=== PATIENT | male | born 1970 | race Two or more races ===

== ENCOUNTER 2024-09-02 20:48 | Inpatient (IN) | payer SELFPAY ==
[2024-09-02] VITALS (22 sets, daily range): BP systolic 126–154; BP diastolic 66–82; PULSE 74–106; RESP 14; TEMP 37.3; O2SAT 92–100; BMI 33.9
--- NOTE | 2024-09-02 21:02 | ECG_ITS ---
[facility] Test Date: 2024-09-02 Pat Name: JAZLYN STANTON Department: Room: - Gender: Male [employer]: : 1970 Requested By: [id number] Order Number: [id number] Reading MD: ROOSEVELT SUÁREZ M.D. Measurements Intervals [place] Rate: 81 P: 61 IL: 140 QRS: 74 QRSD: 84 T: 60 QT: 374 QTc: 412 Interpretive Statements 1100 Sinus rhythm 9110 normal ECG No previous ECG available for comparison Electronically Signed On 09-03-2024 18:34:39 EDT by ROOSEVELT SUÁREZ M.D.
--- NOTE | 2024-09-02 21:02 | XR_ITS ---
[facility] [place] [id number] Patient Name: JAZLYN STANTON MRN: [id number] date: 1970 Sex: M Assigned Patient Location: ED.MAIN Current Patient Location: ED.MAIN Accession/Order Number: [id number] Exam Date: 09/02/2024 21:19 Report Date: 09/02/2024 21:19 At the request of: NAILA REDMAN MD Procedure: XR chest 1V Plain film chest Single view HISTORY: Cough and shortness of breath COMPARISON: None FINDINGS: SUPPORT DEVICES: None POSTSURGICAL CHANGES: None HEART: Within normal limits PULMONARY SONAM: Within normal limits MEDIASTINUM: Unremarkable LUNGS AND PLEURA: No acute lung process, pleural effusion or pneumothorax identified. BONY STRUCTURES: Intact ADDITIONAL FINDINGS None XR/XR chest 1V IMPRESSION: No acute process. Impression dictated by: Jordan De Dios M.D. 09/02/2024 9:19 PM Dictation Location[facility] Electronically authenticated by: [id number] Y Date: 09/02/2024 21:19
--- NOTE | 2024-09-02 21:09 | ED.SOB1 ---
HPI - SOB/Dyspnea General Chief Complaint: Shortness of Breath/Dyspnea Stated Complaint: SHORTNESS OF BREATH, WATER RETENTION Time Seen by Provider: 09/02/24 20:56 Source: patient and family Mode of arrival: walk-in Limitations: no limitations History of Present Illness HPI Narrative: The patient is a 53-year-old male is coming to the ER with 1 week history of increasing shortness of breath, associated with a cough that is productive of white sputum, the patient have a history of chronic bilateral leg edema that has been there at least for the last 2 months, it has also been increasing in the last week as well There was no history of fever chills but there is obvious difficulty breathing upon arrival to the ER, patient was tachypneic and wheezing Patient have a history of asthma and he uses inhalers at home The patient mentioned that he has been recently diagnosed with pneumonia in April of this year at that time he was started on inhaler. The patient denies any history of asthma before but he mentioned that he is a smoker less than 1 pack of cigarettes per day Related Data Home Medications ?Medication ?Instructions ?Recorded ?Confirmed bupropion HCl 150 mg 24 hr tablet, 150 mg PO DAILY 09/02/24 09/02/24 extended release furosemide 40 mg tablet 40 mg PO BID 09/02/24 09/02/24 pramipexole 0.75 mg tablet 0.75 mg PO TID 09/02/24 09/02/24 spironolactone 100 mg tablet 100 mg PO DAILY 09/02/24 09/02/24 (Aldactone) Allergies Allergy/AdvReac Type Severity Reaction Status Date / Time No Known Drug Allergies Allergy Verified 09/02/24 21:00 Review of Systems ROS Status of ROS 10 or more systems reviewed and unremarkable except as noted in history and below PFSH PFSH Social History Little interest or pleasure in doing things: not at all Feeling down, depressed, or hopeless: not at all Exam Narrative Exam Narrative: Nurses notes and vital signs reviewed and patient is not hypoxic. General: Well-appearing and in no apparent distress. Skin: Warm, dry, no pallor noted. No rash. Head: Normocephalic, atraumatic. Neck: Supple, non-tender. Eye: Pupils are equal, round and EOMI. No scleral icterus. Ears, Nose, Mouth, and Throat: TM are clear, no nasal mucosal hypertrophy. Oral mucosa is moist, no posterior oropharynx erythema, uvula is mid-line Cardiovascular: Regular Rate and Rhythm without murmur, gallop or rub. Respiratory: Patient is tachypneic and coughing Lungs bilateral expiratory lung wheezes in both lung erickson Back: No midline thoracic or lumbar vertebral tenderness. No CVA tenderness Musculoskeletal: normal ROM, no calf or popliteal tenderness, no lower extremity edema/swelling GI: Abdomen is soft, non-distended. Normal bowel sounds. No masses appreciated. No tenderness to palpation. No rebound, guarding, or rigidity noted. Neurological: A&O x4. No cranial nerve dysfunction observed. No truncal ataxia. Moves all extremities. Sensation intact. Psychiatric: Cooperative and interactive. Normal mood and affect. Constitutional Vital Signs, click to edit/add: Last Vital Signs Temp 99.2 F 09/02/24 20:56 Pulse 80 09/02/24 23:50 Resp 27 H 09/02/24 23:50 BP 132/68 09/02/24 23:31 Pulse Ox 92 L 09/02/24 23:50 O2 Del Method BIPAP 09/02/24 21:40 FiO2 28 09/02/24 21:40 Course Vital Signs Vital signs: Vital Signs Temperature 99.2 F 09/02/24 20:56 Pulse Rate 89 09/02/24 20:56 Respiratory Rate 22 H 09/02/24 20:56 Blood Pressure 126/66 09/02/24 20:56 Pulse Oximetry 95 09/02/24 20:56 Oxygen Delivery Method Room Air 09/02/24 20:56 Temperature 99.2 F 09/02/24 20:56 Pulse Rate 80 09/02/24 23:50 Respiratory Rate 27 H 09/02/24 23:50 Blood Pressure 132/68 09/02/24 23:31 Pulse Oximetry 92 L 09/02/24 23:50 Oxygen Delivery Method BIPAP 09/02/24 21:40 Fraction of Inspired Oxygen 28 09/02/24 21:40 MDM - SOB/Dyspnea MDM Narrative Medical decision making narrative: The patient EKG showing sinus rhythm with a heart rate of [address] elevation noted for any acute coronary syndrome The patient initially when he came he started having an episode of coughing after which he was using his accessory muscle that why a rosales to give him a breathing treatment with the BiPAP but when I presumed the ABGs it did show some hypoxemia but there is no CO2 retention and the patient was feeling much better after the breathing treatment that we took off the BiPAP The patient on nasal cannula was saturating initially 2 L at 96 to 98% The patient right now is on room air and saturating 92% The patient chest x-ray showed no acute pathology but the D-dimer was elevated and the CT PE did show that the patient have a small pulmonary embolus in the right lower lobe that is not occlusive The patient CBC and chemistry showed no acute significant pathology the BNP was not elevated and the troponins well The patient was started on Eliquis at the treatment for PE but he will be admitted for further evaluation and the need for DVT as well ultrasound Patient still wheezing and needs further treatment and observation Patient case was discussed with Keysha Menard the patient will be admitted under Dr. Regalado Lab Data Labs: Lab Results 09/02/24 09/02/24 09/02/24 Range/Units 21:04 21:40 21:50 WBC 7.2 (4.0-11.0) 10^3/uL RBC 3.92 L (4.70-6.10) 10^6/uL Hgb 9.4 L (14.0-18.0) g/dL Hct 31.1 L (42.0-54.0) % MCV 79.3 L (80.0-94.0) fL MCH 24.0 L (25.9-34.0) pg MCHC 30.2 (29.9-35.2) g/dL RDW 18.2 H (11.0-15.0) % Plt Count 225 (150-450) 10^3/uL MPV 9.6 (9.5-13.5) fL Neut % (Auto) 56.5 (43.0-75.0) % Lymph % (Auto) 15.5 L (20.5-60.0) % Starke % (Auto) 7.8 (1.7-12.0) % Eos % (Auto) 18.9 H (0.9-7.0) % Baso % (Auto) 0.7 (0.2-2.0) % Neut # (Auto) 4.1 (1.4-6.5) 10^3/uL Lymph # (Auto) 1.1 L (1.2-3.8) 10^3/uL Starke # (Auto) 0.6 (0.3-0.8) 10^3/uL Eos # (Auto) 1.4 H (0.0-0.7) 10^3/uL Baso # (Auto) 0.1 (0.0-0.1) 10^3/uL Abs Immat Gran (auto) 0.04 H (0.00-0.03) 10^3/uL Imm/Tot Granulo (auto) 0.6 H (0.0-0.5) % D-Dimer 0.98 H* (<=0.59) mg/L FEU Puncture Site Rr ABG pH 7.474 H (7.350-7.450) ABG pCO2 34.5 L (35.0-45.0) mmHg ABG pO2 71.3 L (80.0-100.0) mmHg ABG HCO3 25.3 (22.0-26.0) mmol/L ABG O2 Saturation 96.2 % ABG Base Excess 1.7 (-2.0-2.0) mmol/L Luigi Test Positive (POSITIVE) FiO2 28 % BiPAP 16/8 Sodium 126 L (136-145) mmol/L Potassium 3.5 (3.5-5.1) mmol/L Chloride 89 L (98-107) mmol/L Carbon Dioxide 27.0 (21.0-32.0) mmol/L Anion Gap 13.5 BUN 10.0 (7.0-18.0) mg/dL Creatinine 1.28 (0.70-1.30) mg/dL Est GFR ( Amer) >60 (>=60 mL/min/1.73m^2) Est GFR (Non-Af Amer) 59 L (>=60 mL/min/1.73m^2) BUN/Creatinine Ratio 7.8 Glucose 106 (74-106) mg/dL Calcium 9.0 (8.5-10.1) mg/dL Total Bilirubin 0.8 (0.2-1.0) mg/dL AST 36 (15-37) U/L ALT 25 (16-63) U/L Alkaline Phosphatase 99 (46-116) U/L Troponin I High Sens 6.9 (4.0-76.1) pg/mL NT-Pro-B Natriuret Pep 151.0 (<=900.0) pg/mL Total Protein 8.1 (6.4-8.2) g/dL Albumin 3.6 (3.4-5.0) g/dL Globulin 4.5 g/dL Albumin/Globulin Ratio 0.8 Influenza Type A Ag Negative Influenza Type B Ag Negative SARS-CoV-2 Ag (CV2AG) Negative (NEGATIVE) Discharge Plan Discharge Chief Complaint: Shortness of Breath/Dyspnea Clinical Impression: Asthma exacerbation in COPD, Pulmonary embolism Patient Disposition: Admitted as Observation Time of Disposition Decision: 01:31 Condition: Good
[2024-09-02 21:12] LABS: Basophils Absolute Auto 0.1 10^3/uL (0.0-0.1); Basophils Percent Auto 0.7 % (0.2-2.0); Eosinophils Absolute Auto 1.4 10^3/uL (0.0-0.7); Eosinophils Percent Auto 18.9 % (0.9-7.0); Hematocrit 31.1 % (42.0-54.0); Hemoglobin 9.4 g/dL (14.0-18.0); Immature Granulocytes Abs Auto 0.04 10^3/uL (0.00-0.03); Immature Granulocytes Pct Auto 0.6 % (0.0-0.5); Lymphocytes Absolute Auto 1.1 10^3/uL (1.2-3.8); Lymphocytes Percent Auto 15.5 % (20.5-60.0); Mean Corpuscular HGB Conc 30.2 g/dL (29.9-35.2); Mean Corpuscular Volume 79.3 fL (80.0-94.0); Mean Platelet Volume 9.6 fL (9.5-13.5); Monocytes Absolute Auto 0.6 10^3/uL (0.3-0.8); Monocytes Percent Auto 7.8 % (1.7-12.0); Neutrophils Absolute Auto 4.1 10^3/uL (1.4-6.5); Neutrophils Percent Auto 56.5 % (43.0-75.0); Platelet Count 225 10^3/uL (150-450); Red Blood Count 3.92 10^6/uL (4.70-6.10); Red Cell Distribution Width 18.2 % (11.0-15.0); White Blood Count 7.2 10^3/uL (4.0-11.0)
--- NOTE | 2024-09-02 21:15 | PC.NURSE ---
this patient complains of shortness of breath, weight gain and cough for the past couple weeks
--- NOTE | 2024-09-02 21:17 | PC.NURSE ---
pt states he's been sob x1 week, persistently getting worse. BLEs have been also swollen x2 months approx, and also getting worse. has not seen PCP since apr when he had pneumonia/flu at the same time. pt is visibly sob upon arrival with audible wheezes & a harsh cough. pt is on 2 water pills. states he's gained 50lbs in 3 months
[2024-09-02] MEDS: METHYLPREDNISOLONE SOD SUCC PF 125 MG/2 ML VIAL IVP (21:19)
[2024-09-02 21:31] LABS: Alanine Aminotransferase 25 U/L (16-63); Albumin Globulin Ratio 0.8; Albumin Level 3.6 g/dL (3.4-5.0); Alkaline Phosphatase 99 U/L (46-116); Anion Gap 13.5; Aspartate Amino Transferase 36 U/L (15-37); BUN Creatinine Ratio 7.8; Bilirubin Total 0.8 mg/dL (0.2-1.0); Chloride 89 mmol/L (98-107); Estimated GFR (African America >60 (>=60 mL/min/1.73m^2); Estimated GFR (Non-African Ame 59 (>=60 mL/min/1.73m^2); Globulin 4.5 g/dL; Glucose 106 mg/dL (74-106); Potassium 3.5 mmol/L (3.5-5.1); Sodium 126 mmol/L (136-145); Total Protein 8.1 g/dL (6.4-8.2)
[2024-09-02 21:37] LABS: Troponin I High Sensitivity 6.9 pg/mL (4.0-76.1)
[2024-09-02] MEDS: IPRATROPIUM/ALBUTEROL SULFATE 3 ML AMPUL.NEB IH (21:43)
[2024-09-02 21:56] LABS: ABG PCO2 34.5 mmHg (35.0-45.0); HCO3 ABG 25.3 mmol/L (22.0-26.0); PO2 ABG 71.3 mmHg (80.0-100.0); pH ABG 7.474 (7.350-7.450)
[2024-09-02 21:57] LABS: Allen Test POSITIVE (POSITIVE); BIPAP Pressure 16/8; Base Excess ABG 1.7 mmol/L (-2.0-2.0); Fractionated Inspired Oxygen 28 %; O2 Mode BIPAP; Oxygen Saturation ABG 96.2 %; Puncture Site RR
[2024-09-02 22:03] LABS: D Dimer 0.98 mg/L FEU (<=0.59)
[2024-09-02 22:12] LABS: Influenza Virus A Antigen Negative; Influenza Virus B Antigen Negative; Internal Control Within Normal Limits; SARS-CoV-2 Ag NEGATIVE (NEGATIVE)
--- NOTE | 2024-09-02 22:44 | PC.NURSE ---
this patient is back from ambulating to and back from the restroom across from room number 9, this patient voices no complaints of shortness of breath or coughing episode. this patient has been updated about the new order for chest CT for him. this patient voices no concerns or needs and shows no signs of distress
[2024-09-03] VITALS (95 sets, daily range): BP systolic 119–192; BP diastolic 54–93; PULSE 76–100; TEMP 36.6–36.9; O2SAT 88–98; BMI 42.0
[2024-09-03] MEDS: APIXABAN 5 MG TABLET 10 MG PO ×2 (01:52→08:03)
[2024-09-03] MEDS: IPRATROPIUM/ALBUTEROL SULFATE 3 ML AMPUL.NEB IH ×4 (04:36→15:04)
[2024-09-03 05:59] LABS: Hemoglobin 8.8 g/dL (14.0-18.0); Mean Corpuscular HGB Conc 30.3 g/dL (29.9-35.2); Mean Corpuscular Hemoglobin 24.3 pg (25.9-34.0); Mean Corpuscular Volume 80.1 fL (80.0-94.0); Mean Platelet Volume 9.8 fL (9.5-13.5); Platelet Count 184 10^3/uL (150-450); Red Blood Count 3.62 10^6/uL (4.70-6.10); Red Cell Distribution Width 18.1 % (11.0-15.0); White Blood Count 4.7 10^3/uL (4.0-11.0)
[2024-09-03 06:18] LABS: Anion Gap 13.5; BUN Creatinine Ratio 10.1; Calcium 8.9 mg/dL (8.5-10.1); Carbon Dioxide 27.6 mmol/L (21.0-32.0); Chloride 93 mmol/L (98-107); Estimated GFR (African America >60 (>=60 mL/min/1.73m^2); Estimated GFR (Non-African Ame 54 (>=60 mL/min/1.73m^2); Glucose 183 mg/dL (74-106); Potassium 4.1 mmol/L (3.5-5.1); Sodium 130 mmol/L (136-145)
[2024-09-03] MEDS: PRAMIPEXOLE 0.125 MG TABLET 0.75 MG PO ×2 (06:21→13:57)
[2024-09-03] MEDS: METHYLPREDNISOLONE SOD SUCC PF 40 MG/ML VIAL 60 MG IVP ×3 (06:22→17:53)
[2024-09-03 06:27] LABS: Troponin I High Sensitivity 4.6 pg/mL (4.0-76.1)
--- NOTE | 2024-09-03 07:00 | CA_ITS ---
Patient Name: JAZLYN STANTON MR#: [id number] : 1970 Exam Date: 09/03/2024 Ordering Doctor: ALEX ALBERT ECHOCARDIOGRAM REPORT PROCEDURE: CA ECHO DOPPLER COMPLETE INDICATIONS: Pulmonary embolism, alcohol abuse, smoker, asthma exacerbation in COPD COMPARISON: None. DESCRIPTION: COMPLETE ECHOCARDIOGRAM Real-time transthoracic echocardiography with 2D, M-mode, spectral and color flow Doppler performed. QUALITY: Technically difficult due to patients condition. LEFT VENTRICLE: Normal chamber size. Thickened septal wall. Systolic function is hyperdynamic. Increased ejection velocities are noted related to hyperdynamic function. Peak gradient with Valsalva maneuver 34 mmHg. LV EF: Hyperdynamic left ventricular ejection fraction, (75%). DIASTOLIC: ATRIAL SEPTUM: LEFT ATRIUM: Normal chamber size. RIGHT ATRIUM: Normal chamber size. RIGHT VENTRICLE: Normal chamber size. Normal right ventricular systolic function. TRICUSPID VALVE: Normal mobility and thickness. No stenosis with no regurgitation. Unable to assess right-sided pressures due to lack of measurable tricuspid regurgitation. MITRAL VALVE: Normal mobility and thickness. No evidence of mitral valve stenosis. There is no mitral annular calcification. No mitral regurgitation. AORTIC VALVE: No visible sclerosis. Normal leaflet mobility. No evidence of aortic valve stenosis. No aortic regurgitation. AORTIC ROOT: Normal diameter and appearance. PULMONIC VALVE: Not well visualized. No stenosis. No regurgitation. PERICARDIUM: No evidence of pericardial effusion. IVC: IVC is dilated (2.4 cm), does not fully collapse. PLEURA: CONCLUSION: 1. The left ventricular is normal in size and exhibits hyperdynamic systolic function. Estimated LVEF is 75%. Elevated left ventricular ejection velocities are noted with increase during the Valsalva maneuver with a peak gradient of 34 mmHg. 2. Normal right ventricular size and systolic function. 3. No significant valvular dysfunction. 4. Technically difficult study with poor sound transmission. 5. Depending on the clinical picture, a cardiac MRI can be considered for better characterization of the increased ventricular outflow velocities. Adult Echocardiography Procedure Report Left Ventricle LVEDD (3.7 - 5.6 cm): 4.12 cm LVESD (2.2 - 4.0 cm): 2.38 cm LVIVS thickness (0.6 - 1.2 cm): 1.01 cm LVPW thickness (0.5 - 1.0 cm): 1.43 cm e': 0.18 m/s E - e': 4.04 LVOT Max Gradient: 9.99 mm[Hg] LVOT Area (cm2): 1.58 m/s Peak Velocity (LVOT): 1.58 m/s LVOT Diameter 2.49 cm Left Atrium LA Volume Index (2D A2C): 24.07 ml/m2 Left Atrium Systolic Dimension: 3.50 cm Mitral Valve MV E to A Ratio: 0.93 Mitral Valve A-Wave Peak Velocity: 0.79 m/s Mitral Valve E-Wave Peak Velocity: 0.73 m/s Right Ventricle Aorta AO Root Diam: 3.61 cm Aortic Valve AoV Area (Peak Ramírez): 3.32 cm2, 3.32 cm2 Peak Velocity(Antegrade Flow): 2.32 m/s Peak Gradient(Antegrade Flow): 21.58 mm[Hg] Tricuspid Valve Pulmonic Valve Peak Velocity: 1.58 m/s Peak Gradient: 10.03 mm[Hg] Right Atrium Dictated by: Holger Norris M.D. on 09/03/2024 at 13:39 Approved by: Holger Norris M.D. on 09/03/2024 at 13:44
--- NOTE | 2024-09-03 07:04 | CT_ITS ---
[address] [address] Patient Name: JAZLYN STANTON MRN: [id number] date: 1970 Sex: M Assigned Patient Location: MS Current Patient Location: MS Accession/Order Number: [id number] Exam Date: 09/03/2024 08:27 Report Date: 09/03/2024 08:34 At the request of: MYLENE MERCADO DO Procedure: CT abdomen pelvis wo con CT Abdomen and Pelvis withoutcontrast TECHNIQUE: Axial imaging with 2-D reconstruction. . The CT exam was performed using one or more the following dose reduction techniques: Automated exposure control, adjustment of the MA and/or Kv according to patient size, or use of the iterative reconstruction technique. COMPARISON: None History: History of cirrhosis. Weight gain. Fluid retention. Recent contrasted study 09/02/2024 LIMITATIONS: None LOWER THORAX mild atelectasis LIVER: Liver cirrhosis. Hepatic steatosis. Ill-defined hypodensity near the gallbladder fossa. Measures up to 3.7 cm. GALLBLADDER: Cholelithiasis. BILE DUCTS: No dilatation SPLEEN: Unremarkable PANCREAS: Unremarkable ADRENAL GLANDS: Unremarkable KIDNEYS:Contrast in nondistended renal collecting system. No obstructive uropathy. AORTA: No abdominal aortic aneurysm identified. Mild atherosclerosis. RETROPERITONEUM: Small periaortic lymph nodes. MESENTERY:Unremarkable STOMACH:Unremarkable SMALL BOWEL: The small bowel loops are nondistended. APPENDIX: The appendix is normal. COLON: Unremarkable URINARY BLADDER: Urinary bladder is unremarkable. REPRODUCTIVE SYSTEM: Reproductive structures are unremarkable. PNEUMOPERITONEUM: None PERITONEAL FLUID:None BONY STRUCTURES: Degenerative change ABDOMINAL WALL: Unremarkable CT/CT abdomen pelvis wo con IMPRESSION: Contrast in nondistended renal collecting system without obstruction. Stones may be obscured. Liver cirrhosis with hepatic steatosis. Ill-defined up to 4 cm lesion of the liver near the gallbladder fossa. May correspond with focal region of fatty infiltration. Underlying lesion not excluded. Consider further assessment with MRI the liver with and without contrast. Cholelithiasis. No acute abdominal or pelvic findings. Impression dictated by: Jordan De Dios M.D. 09/03/2024 8:34 AM Dictation Location: [place] [address] Electronically authenticated by: [id number] Y Date: 09/03/2024 08:34
[2024-09-03] MEDS: BUPROPION HCL 150 MG XL TABLET 24H PO (08:03)
--- NOTE | 2024-09-03 08:44 | PM.HP ---
HPI H&P: HPI History of Present Illness Chief complaint: COPD EXACERBATION, P.F. Narrative: Patient is a 53 y.o. male with past medical history of tobacco abuse, smokes about 1PPD, Alcoholic cirrhosis, Lower ext edema (present 6 months), RLS, who presented to the ER last night with 1 week history of shortness of breath and productive cough (on admission exam patient said more like 4-6 months of shortness of breath). Patient's chest X-ray was negative for acute process but on presentation to the ER with coughing patient was tripoding and was barely able to catch his breath and nearly passed out so ABG was obtained and patient was placed on BIPAP. After breathing treatment patient recovered and was able to be taken off bipap and placed on [place] oxygen. Elevated D-dimer and patient had CTA of the chest that showed small right pulmonary embolus at the bifurcation of the RLL pulmonary artery, nonocclusive, no saddle embolus, no heart strain, No AAA. Patient was started on Eliquis and admitted for further plan of care. I was notified by [facility] nurse at 6:36am that patient continued to get in coughing fit that almost made him pass out. Denice mentioned he received IV solumedrol and a breathing treatment just prior to this. Patient had been on and off BIPAP all evening and that he had bilateral leg edema, history of alcohol use. Patient was made STEPDOWN status. Given order for BIPAP, scheduled duonebs, and pulmicort, and order placed for CT of abd/pelvis. ORDER for magnesium level to be drawn, she reviewed normal troponin findings and normal Probnp. CT of the Abd/pelvis showed Liver cirrhosis, hepatic steatosis, and a lesion near the Gallbladder fossa measuring 3.7cm with cholelithiasis. Recommended dedicated liver MRI. This morning on exam he is coughing, is short of breath with conversing. He is a smoker with known alcoholic cirrhosis that has been present for many years. He follows with a PCP in [facility]. He was placed on diuretic for persistent lower ext edema since he had pneumonia back in April. Has also been on an inhaler since then but never had diagnosis of COPD or asthma that he is aware of. No personal history of cancer, no family history of clotting disorders and he personally has never had blood clots. I have updated him on findings and new testing ordered. Opioid HPI Opioid Management Most Recent Pain and Opioid Data: Last Pain Assessment Today, 03:48 Last ORT Total Score 5 Today, 02:43 Last ORT Risk Category Moderate Risk Today, 02:43 Review of Systems ROS Narrative ROS: a complete review of systems were reviewed with patient and are positive as below or listed in History of Chief Complaint. General: no fever, chills, night sweats Head: no headache, trauma, visual changes, nausea or vomiting Skin: no reported rashes, itching or sores Eyes: no blurriness of vision Ears: no reported hearing loss, vertigo, earache, or tinnitus Throat: no sore throat, hoarseness, swelling of neck, or tongue pain Heart: no chest pain Lungs: shortness of breath and cough GI: no diarrhea or vomiting/nausea Urinary: no urinary urgency, frequency or pain Neuro: no numbness or tingling HEM: no bleeding issues or bruising ENDO: no thyroid problems Psych: no anxiety or depression PFSH PFSH Medical History (Updated 09/03/24 @ 11:29 by Ana Regalado DO) AA (alcohol abuse) ?F10.10 - Alcohol abuse, uncomplicated (ICD-10) Acute carpal tunnel syndrome ?G56.00 - Carpal tunnel syndrome, unspecified upper limb (ICD-10) Liver cirrhosis ?K74.60 - Unspecified cirrhosis of liver (ICD-10) Surgical History History of carpal tunnel surgery ?Z98.890 - Other specified postprocedural states (ICD-10) Family History Brother Family history of cancer Mother Family history of hypertension Other Family history not known due to adoption Social History Within the past year, how often did you have a drink containing alcohol: 2-4 times a month Within the past year, how many standard drinks containing alcohol did you have on a typical day: 1 or 2 Within the past year, how often did you have six or more drinks on one occasion: never Total score: 0 Score interpretation: A score less than 4 is consistent with normal alcohol consumption. Smoking status: Current every day smoker Second hand tobacco smoke exposure: No Non-prescribed substance use: cannabis (any form) Previous occupational history: [employer] Known occupational exposures/hazards: No Highest level of school completed/degree received: Associate degree: academic program Do you want help with school or training: No Are you now , , , , never or living with a partner: In a typical week, how many times do you talk on the telephone with family, friends, or neighbors: 3 or more times per week How often do you get together with friends or relatives: once per week How often do you attend yazidi or protestant services: never Do you belong to any clubs or organizations such as yazidi groups unions, [employer] or athletic groups, or school groups: yes Total score: 2 Score interpretation: A score of greater than or equal to 2 indicates the lowest level of social isolation. Little interest or pleasure in doing things: not at all Feeling down, depressed, or hopeless: not at all Feel stressed/tense/nervous/anxious/difficulty sleeping: not at all Life stressors: unknown source of stress Due to disability, difficulty making decisions: No Meds Home Medications and Allergies Home Medications ?Medication ?Instructions ?Recorded ?Confirmed ?Type bupropion HCl 150 mg 24 hr tablet, 150 mg PO DAILY 09/02/24 09/03/24 History extended release furosemide 40 mg tablet 40 mg PO BID 09/02/24 09/03/24 History pramipexole 0.75 mg tablet 0.75 mg PO TID 09/02/24 09/03/24 History spironolactone 100 mg tablet 100 mg PO DAILY 09/02/24 09/03/24 History (Aldactone) Allergies Allergy/AdvReac Type Severity Reaction Status Date / Time No Known Drug Allergies Allergy Verified 09/03/24 02:29 Exam Narrative Exam Narrative: General: Patient is alert, and oriented to person, place and time, is short of breath with conversing Skin: no visible rashes, or ulcers Head: atraumatic, acephalic Eyes: PERRLA, no nystagmus present, conjunctiva clear, no scleral icterus Ears: normal gross auditory acuity Neck: no masses palpated, normal thyroid, no JVD Heart: Normal rate and rhythm, no murmurs/rubs/gallops Lungs: audible wheezes, crackles all lung erickson Abdomen: Normal audible bowel sounds, mild distension, No palpable masses, no organomegaly, no rebound/guarding/ or rigidity Musculoskeletal: +2 bilateral lower extremities edema Neuro: CN II-X grossly intact, normal sensation upper and lower extremities Constitutional Vital Signs, click to edit/add: Last Vital Signs Temp 98.3 F 09/03/24 07:55 Pulse 86 09/03/24 08:34 Resp 24 H 09/03/24 07:55 BP 119/54 09/03/24 07:55 Pulse Ox 94 L 09/03/24 07:55 O2 Del Method Nasal Cannula 09/03/24 07:55 O2 Flow Rate 2 09/03/24 07:55 FiO2 2 09/03/24 05:13 Results Labs Labs: Short CBC 09/02/24 09/03/24 Range/Units 21:04 05:43 WBC 7.2 4.7 (4.0-11.0) 10^3/uL Hgb 9.4 L 8.8 L (14.0-18.0) g/dL Hct 31.1 L 29.0 L (42.0-54.0) % Plt Count 225 184 (150-450) 10^3/uL BMP 09/02/24 09/03/24 21:04 05:43 Sodium 126 L 130 L Potassium 3.5 4.1 Chloride 89 L 93 L Carbon Dioxide 27.0 27.6 BUN 10.0 14.0 Creatinine 1.28 1.38 H Glucose 106 183 H Calcium 9.0 8.9 Liver Function 09/02/24 Range/Units 21:04 Total Bilirubin 0.8 (0.2-1.0) mg/dL AST 36 (15-37) U/L ALT 25 (16-63) U/L Alkaline Phosphatase 99 (46-116) U/L Albumin 3.6 (3.4-5.0) g/dL ABG ABG results: 09/02/24 21:50 ABG pH 7.474 H ABG pCO2 34.5 L ABG pO2 71.3 L ABG HCO3 25.3 ABG O2 Saturation 96.2 ABG Base Excess 1.7 Assessment and Plan Assessment and Plan (1) Pulmonary embolism: Assessment and Plan: as seen on CTA of the chest also with some periaortic lymph nodes and liver mass seen on ct abd/pelvis; will get dedicated MRI liver, echocardiogram. Patient is a smoker and with cirrhosis history, cannot rule out malignancy cause; continue eliquis. May benefit from hypercoag work up outpatient, colonoscopy, PSA and hem work up. Qualifiers: Acute cor pulmonale presence: unspecified Chronicity: acute Pulmonary embolism type: unspecified Qualified Code(s): I26.99 - Other pulmonary embolism without acute cor pulmonale (2) Acute respiratory failure with hypoxia: Assessment and Plan: due to #1, Treat PE. Patient placed in stepdown status. requiring BIPAP as needed? Concern for rapid decompensation and possible need for urgent transfer to Acute Care facility, monitor closely (3) Deep vein thrombosis (DVT) of left lower extremity: Assessment and Plan: continue eliquis, see #1 Qualifiers: Affected thrombotic vein of extremity: popliteal Chronicity: acute Qualified Code(s): I82.432 - Acute embolism and thrombosis of left popliteal vein (4) Asthma exacerbation in COPD: Assessment and Plan: add IV azithromycin, rocephin in the setting of low grade temp and duration of cough; continue IV solumedrol, scheduled nebs and PRN nebs, added pulmicort. reviewed ABG, CTA findings, viral testing negative (5) Liver cirrhosis: Assessment and Plan: Normal Liver enzymes, and bilirubin; history of alcohol abuse Qualifiers: Ascites presence: with ascites Hepatic cirrhosis type: alcoholic cirrhosis Qualified Code(s): K70.31 - Alcoholic cirrhosis of liver with ascites (6) Bilateral lower extremity edema: Assessment and Plan: resume home lasix, positive for DVT on the left (7) Liver mass: Assessment and Plan: as seen on CT of the abdomen, check dedicated MRI liver Plan Patient is a full code continue eliquis Patient was made inpatient status due to respiratory decompensation and the need for STEPDOWN CARE, patient is critical and may need transfer for higher level of care.
[2024-09-03] MEDS: AZITHROMYCIN 500 MG in 0.9 % SODIUM CHLORIDE 250 ML 250 MG IV (09:04)
[2024-09-03] MEDS: FUROSEMIDE 40 MG TABLET PO (09:15)
[2024-09-03] MEDS: CEFTRIAXONE 1,000 MG in 0.9 % SODIUM CHLORIDE 50 ML 100 MG IV (09:16)
--- NOTE | 2024-09-03 09:26 | SWNOTE1 ---
Pt is a true self pay. SW sent Reema Cesar, financial counselor, an email to inform her of pt being self pay.
[2024-09-03] MEDS: BUDESONIDE 0.5 MG/2 ML AMPULE NEB IH (11:06)
--- NOTE | 2024-09-03 11:26 | CM.NOTE ---
Rounds made with Dr. Regalado. Dr. Regalado reviews plan of care and findings with Mr. Grant. No discharge today.
[2024-09-03] MEDS: GUAIFENESIN DM 600-30 MG 12 HR TAB 1 TAB PO (11:50)
[2024-09-03 12:13] LABS: INR 1.16; Partial Thromboplastin Time 27.3 sec (22.3-36.2); Prothrombin Time 12.1 sec (9.0-11.6)
[2024-09-03 12:25] LABS: Troponin I High Sensitivity <4.0 pg/mL (4.0-76.1)
--- NOTE | 2024-09-03 13:42 | SWNOTE1 ---
SW consulted to complete Advanced Directives. SW stopped in and spoke with pt. Pt would like to completed HCPOA. SW completed HCPOA with pt. SW made copy for pt and copy for. SW provided copy to pt along with the original and copy in chart.
[2024-09-03 14:15] LABS: Bilirubin Urine NEGATIVE (NEGATIVE); Blood Urine NEGATIVE (NEGATIVE); Clarity Urine CLEAR (CLEAR); Color Urine LT. YELLOW (YELLOW); Glucose Urine UA NEGATIVE (NEGATIVE); Ketones Urine NEGATIVE (NEGATIVE); Leukocyte Esterase Urine NEGATIVE (NEGATIVE); Nitrite Urine NEGATIVE (NEGATIVE); Protein Urine NEGATIVE (NEG/TRACE); Specific Gravity Urine <=1.005 (1.005-1.025); Urobilinogen Urine 0.2 EU/dL (0.2-1.0)
[2024-09-03 14:16] LABS: Urine Microscopic Indicated NO
[2024-09-03 14:28] LABS: Amphetamine Screen Urine NEGATIVE (NEGATIVE); Barbiturates Screen Urine NEGATIVE (NEGATIVE); Benzodiazepines Screen Urine NEGATIVE (NEGATIVE); Buprenorphine Screen Urine NEGATIVE (NEGATIVE); Cannabinoid Screen Urine NEGATIVE (NEGATIVE); Cocaine Screen Urine POSITIVE (NEGATIVE); Methadone Screen Urine NEGATIVE (NEGATIVE); Methamphetamines Screen Urine NEGATIVE (NEGATIVE); Opiate Screen Urine NEGATIVE (NEGATIVE); Oxycodone Screen Urine NEGATIVE (NEGATIVE); Phencyclidine Screen Urine NEGATIVE (NEGATIVE); Tricyclic Antidepressant Urine NEGATIVE (NEGATIVE)
--- NOTE | 2024-09-03 15:43 | P.EN_ITS ---
Event Note Event Note: Echo showed EF 75% With thickened septum, concern for LVOT, increase LV peak flow 34 with Valsalva. Patient also tested positive for Cocaine on drug screen. I have discussed case with Dr. Burnett, [facility] who recommends transfer to [facility] for further cardiac work up and possible GI/Hepatology given liver mass. Awaiting a call back for Hospitalist admitting for transfe to [facility]. Patient updated on plan of care and transfer.
--- NOTE | 2024-09-03 15:43 | PM.EN ---
Event Note Event Note: Echo showed EF 75% With thickened septum, concern for LVOT, increase LV peak flow 34 with Valsalva. Patient also tested positive for Cocaine on drug screen. I have discussed case with Dr. Burnett, [facility] who recommends transfer to [facility] for further cardiac work up and possible GI/Hepatology given liver mass. Awaiting a call back for Hospitalist admitting for transfe to [facility]. Patient updated on plan of care and transfer.
--- NOTE | 2024-09-03 15:47 | P.DS_ITS ---
DS: Providers Provider Date of admission: 09/03/24 07:42 Primary care physician: Non-Staff Physician, Attending physician on admission: Ana Regalado Consults: 09/03/24 Consult to Security And Compliance Analyst Routine Reason for consult:: Advanced Directives 09/03/24 13:26 Consult to Cardiology Routine Reason for consultation: Coughing syncope, possible Hypertroph cardiomyopath y, Acute PE Has provider been notified: No Discharging clinician: Ana Regalado DS: Diagnosis Discharge Diagnosis (1) Pulmonary embolism: Qualifiers: Acute cor pulmonale presence: unspecified Chronicity: acute Pulmonary embolism type: unspecified Qualified Code(s): I26.99 - Other pulmonary embolism without acute cor pulmonale (2) Acute respiratory failure with hypoxia: (3) Deep vein thrombosis (DVT) of left lower extremity: Qualifiers: Affected thrombotic vein of extremity: popliteal Chronicity: acute Qualified Code(s): I82.432 - Acute embolism and thrombosis of left popliteal vein (4) Asthma exacerbation in COPD: (5) Liver cirrhosis: Qualifiers: Hepatic cirrhosis type: alcoholic cirrhosis Ascites presence: with ascites Qualified Code(s): K70.31 - Alcoholic cirrhosis of liver with ascites (6) Bilateral lower extremity edema: (7) Liver mass: DS: Summary Hospital Course Hospital Course: Please see H&P and EVENT NOTE dated 09/03/24. Patient will be transferred to [facility] for higher level of care and further cardiac work up, possible GI/Hepatology consult. Status at Discharge Functional status at discharge: bed bound Overall status at discharge: patient is not back to baseline Time Spent with Patient Time attestation: Total time spent providing and/or coordinating discharge services: Time spent: greater than 30 minutes Exam Narrative Exam Narrative: no changes at the time of discharge from admitted exam H&P dated 09/03/24 Constitutional Vital Signs, click to edit/add: Last Vital Signs Temp 98.5 F 09/03/24 12:08 Pulse 85 09/03/24 15:08 Resp 22 H 09/03/24 12:10 BP 171/66 H 09/03/24 12:08 Pulse Ox 93 L 09/03/24 15:08 O2 Del Method Room Air 09/03/24 15:08 O2 Flow Rate 2 09/03/24 11:30 FiO2 2 06/12/25 05:13 DS: Data Data Completed and Pending Labs on day of discharge: Labs from last 24 hours 09/03/24 09/03/24 09/03/24 14:00 11:51 05:43 WBC 4.7 RBC 3.62 L Hgb 8.8 L Hct 29.0 L MCV 80.1 MCH 24.3 L MCHC 30.3 RDW 18.1 H Plt Count 184 MPV 9.8 Neut % (Auto) Lymph % (Auto) [place] % (Auto) Eos % (Auto) Baso % (Auto) Neut # (Auto) Lymph # (Auto) [place] # (Auto) Eos # (Auto) Baso # (Auto) Abs Immat Gran (auto) Imm/Tot Granulo (auto) PT 12.1 H INR 1.16 APTT 27.3 D-Dimer Puncture Site ABG pH ABG pCO2 ABG pO2 ABG HCO3 ABG O2 Saturation ABG Base Excess Luigi Test FiO2 BiPAP Sodium 130 L Potassium 4.1 Chloride 93 L Carbon Dioxide 27.6 Anion Gap 13.5 BUN 14.0 Creatinine 1.38 H Est GFR ( Amer) >60 Est GFR (Non-Af Amer) 54 L BUN/Creatinine Ratio 10.1 Glucose 183 H Calcium 8.9 Total Bilirubin AST ALT Alkaline Phosphatase Troponin I High Sens <4.0 L 4.6 NT-Pro-B Natriuret Pep 275.0 Total Protein Albumin Globulin Albumin/Globulin Ratio Urine Color Lt. yellow Urine Clarity Clear Urine pH 6.0 Ur Specific [place] <=1.005 A Urine Protein Negative Urine Glucose (UA) Negative Urine Ketones Negative Urine Occult Blood Negative Urine Nitrite Negative Urine Bilirubin Negative Urine Urobilinogen 0.2 Ur Leukocyte Esterase Negative Urine Opiates Screen Negative Ur Buprenorphine Scrn Negative Ur Oxycodone Screen Negative Urine Methadone Screen Negative Ur Barbiturates Screen Negative U Tricyclic Antidepress Negative Ur Phencyclidine Scrn Negative Ur Amphetamines Screen Negative U Methamphetamines Scrn Negative U Benzodiazepines Scrn Negative Urine Cocaine Screen Positive A U Cannabinoids Screen Negative Influenza Type A Ag Influenza Type B Ag SARS-CoV-2 Ag (CV2AG) 09/02/24 09/02/24 09/02/24 21:50 21:40 21:04 WBC 7.2 RBC 3.92 L Hgb 9.4 L Hct 31.1 L MCV 79.3 L MCH 24.0 L MCHC 30.2 RDW 18.2 H Plt Count 225 MPV 9.6 Neut % (Auto) 56.5 Lymph % (Auto) 15.5 L [place] % (Auto) 7.8 Eos % (Auto) 18.9 H Baso % (Auto) 0.7 Neut # (Auto) 4.1 Lymph # (Auto) 1.1 L [place] # (Auto) 0.6 Eos # (Auto) 1.4 H Baso # (Auto) 0.1 Abs Immat Gran (auto) 0.04 H Imm/Tot Granulo (auto) 0.6 H PT INR APTT D-Dimer 0.98 H* Puncture Site Rr ABG pH 7.474 H ABG pCO2 34.5 L ABG pO2 71.3 L ABG HCO3 25.3 ABG O2 Saturation 96.2 ABG Base Excess 1.7 Luigi Test Positive FiO2 28 BiPAP 16/8 Sodium 126 L Potassium 3.5 Chloride 89 L Carbon Dioxide 27.0 Anion Gap 13.5 BUN 10.0 Creatinine 1.28 Est GFR ( Amer) >60 Est GFR (Non-Af Amer) 59 L BUN/Creatinine Ratio 7.8 Glucose 106 Calcium 9.0 Total Bilirubin 0.8 AST 36 ALT 25 Alkaline Phosphatase 99 Troponin I High Sens 6.9 NT-Pro-B Natriuret Pep 151.0 Total Protein 8.1 Albumin 3.6 Globulin 4.5 Albumin/Globulin Ratio 0.8 Urine Color Urine Clarity Urine pH Ur Specific [place] Urine Protein Urine Glucose (UA) Urine Ketones Urine Occult Blood Urine Nitrite Urine Bilirubin Urine Urobilinogen Ur Leukocyte Esterase Urine Opiates Screen Ur Buprenorphine Scrn Ur Oxycodone Screen Urine Methadone Screen Ur Barbiturates Screen U Tricyclic Antidepress Ur Phencyclidine Scrn Ur Amphetamines Screen U Methamphetamines Scrn U Benzodiazepines Scrn Urine Cocaine Screen U Cannabinoids Screen Influenza Type A Ag Negative Influenza Type B Ag Negative SARS-CoV-2 Ag (CV2AG) Negative Discharge Plan Discharge Disposition: Xfer Acute Care Hospital Condition: Serious Discharge location: Transfer to [facility] for Acute Care Hospital
== END 2024-09-03 20:01 | disposition short-term general hospital (02) | DRG 189 ==
LOC: ER 09-03 01:32 → MS 09-03 02:14
PROVIDERS: Registered Nurse; Admitting Provider Family Medicine; Emergency Provider Emergency Medicine; Visit Provider Family Medicine
DX: J96.01 Acute respiratory failure with hypoxia (principal); I26.99 Other pulmonary embolism without acute cor pulmonale; J45.901 Unspecified asthma with (acute) exacerbation; I82.4Z2 Acute embolism and thrombosis of unspecified deep veins of left distal lower extremity; G25.81 Restless legs syndrome; F17.210 Nicotine dependence, cigarettes, uncomplicated; K80.20 Calculus of gallbladder without cholecystitis without obstruction; K76.0 Fatty (change of) liver, not elsewhere classified; F10.10 Alcohol abuse, uncomplicated; K70.31 Alcoholic cirrhosis of liver with ascites; R60.0 Localized edema; R16.0 Hepatomegaly, not elsewhere classified; F14.90 Cocaine use, unspecified, uncomplicated
CPT/HCPCS: 36415; 36600; 71045; 71275; 74176; 80048; 80053; 80307; 81003; 82805; 83880; 84484; 85025; 85027; 85378; 85610; 85730; 87804; 87811; 93005; 93306; 93970; 94640; 94660; 94761; 96374; 99285; 99406; J0456; J0696; J2919; Q9967